=== PATIENT | female | born 1965 | race Caucasian/White ===

== ENCOUNTER 2017-12-11 12:58 | Outpatient (CLI) | payer OTHER | END 2017-12-11 13:00 | LOC: POD 12:58 | PROVIDERS: ATTEND Podiatrist | DX: L60.0 Ingrowing nail (principal); M79.675 Pain in left toe(s) ==

== ENCOUNTER 2017-12-25 14:07 | Outpatient (CLI) | payer OTHER | END 2017-12-25 14:10 | LOC: POD 14:07 | PROVIDERS: ATTEND Podiatrist | DX: Z48.89 Encounter for other specified surgical aftercare (principal); L60.9 Nail disorder, unspecified | CPT/HCPCS: 99213 ==